=== PATIENT | female | born 1950 | race Caucasian/White ===

== ENCOUNTER 2016-10-17 09:13 | Day surgery (SDC) | payer MEDICARE ==
[~2016-10-17] VITALS: Ht 167.6 cm; Wt 54.0 kg
[~2016-10-17 09:13] MED LIST: ALEN35TA31 PO; ALPR0.5T8 PO; ASPI-973 PO; C COMPLEX PO; CHOL200025 PO; OXYQ113.2 VAGINAL; PRE625 PO; ZOLP5TAB6 PO
[2016-10-17] MEDS ORDERED: 0.9% Sodium Chloride 1,000 ML IV PRN (09:23)
[2016-10-17] MEDS ORDERED: fentaNYL-PF 50 mCg/mL 2 mL Inj IVPUSH PRN (09:25)
[2016-10-17] MEDS ORDERED: Sodium Chloride LOK Flush 10 mL Syringe IV PRN (09:25)
[2016-10-17 09:49] VITALS: BP 127/75; PULSE 77; RESP 15; O2SAT 98
[2016-10-17] MEDS ORDERED: 0.9% Sodium Chloride 1,000 ML IV ONE (10:15)
[2016-10-17 10:59] VITALS: BP 121/67; PULSE 62; RESP 16; O2SAT 96
[2016-10-17 11:09] VITALS: BP 114/65; PULSE 66; RESP 16; O2SAT 100
[2016-10-17 11:18] VITALS: BP 113/72; PULSE 67; RESP 16; O2SAT 99
--- NOTE | 2016-10-17 11:42 | ENDO ---
[address] [address] ENDOSCOPY PROCEDURE PATIENT: PANCHITO SERRANO : 1950 MR#: [id number] ADMIT: 10/17/2016 JOB ID: [id number] DATE OF SERVICE: 10/17/2016 PRIMARY PROVIDER: FARRUKH Parker. PROCEDURE: Colonoscopy. INDICATIONS: A 65-year-old female with a family history of colon cancer. EQUIPMENT: [employer]. SEDATION: 1. Versed 4 mg. 2. Fentanyl 100 mcg. COMPLICATIONS: None identified. BOWEL PREPARATION: Excellent. PROCEDURE INFORMATION: After the risks and benefits were explained, written and verbal informed consent was obtained. The patient was brought into the endoscopy suite and placed into the left lateral decubitus position. Sedation was achieved using the above-stated medications with the addition of oxygen via nasal cannula. Digital rectal examination was accomplished. No significant pathology appreciated. The scope was introduced into the rectum and advanced under direct visualization to the level of the cecum, as identified by the appendiceal orifice and ileocecal valve. The scope was slowly withdrawn to carefully examine the mucosa for any defects or lesions. Retroflexed views were avoided in the rectum. Multiple direct views were made through the dentate line for exclusion of pathology. The colon was decompressed. The scope removed from the patient who tolerated the procedure well. FINDINGS: Very technically challenging navigation. Redundant, twisty colon. No significant polyps, mass lesions, or inflammatory features identified throughout. ENDOSCOPIC DIAGNOSES: Visually unremarkable colonoscopy. RECOMMENDATIONS: Considering family history, repeat colonoscopy in five years.
== END 2016-10-17 23:59 | disposition home or self-care (01) ==
LOC: END 09:13
PROVIDERS: ATTEND Internal Medicine Gastroenterology
DX: Z12.11 Encounter for screening for malignant neoplasm of colon (principal); Z80.0 Family history of malignant neoplasm of digestive organs; K59.00 Constipation, unspecified; Z79.82 Long term (current) use of aspirin; Z79.890 Hormone replacement therapy; Z85.3 Personal history of malignant neoplasm of breast
CPT/HCPCS: 99153; G0105; G0500; J2250; J3010; J7030

== ENCOUNTER 2017-01-23 13:40 | Day surgery (SDC) | payer MEDICARE ==
[~2017-01-23] VITALS: Ht 167.6 cm; Wt 55.0 kg
[~2017-01-23 13:40] MED LIST changes: +0.9% Sodium Chloride 1,000 ML IV PRN; -OXYQ113.2 VAGINAL; -PRE625 PO; +Sodium Chloride LOK Flush 10 mL Syringe IV PRN; +fentaNYL-PF 50 mCg/mL 2 mL Inj IVPUSH PRN
[2017-01-23 14:12] VITALS: BP 118/74; PULSE 62; RESP 16; O2SAT 100
[2017-01-23 15:45] VITALS: BP 126/61; PULSE 67; RESP 14; O2SAT 97
[2017-01-23 15:55] VITALS: BP 113/59; PULSE 68; RESP 14; O2SAT 97
[2017-01-23 16:19] VITALS: BP 114/58; PULSE 63; RESP 12; O2SAT 99
--- NOTE | 2017-01-23 16:47 | ENDO ---
[address] [address] ENDOSCOPY PROCEDURE PATIENT: PANCHITO SERRANO : 1950 MR#: [id number] ADMIT: 01/23/2017 JOB ID: [id number] DATE: 01/23/2017 PROCEDURE: Esophagogastroduodenoscopy with biopsies. INDICATIONS: A 66-year-old female with fluctuating right upper quadrant pain, postprandial mostly in nature, going on some two years now. Labs are unremarkable. HIDA scan is normal. CT does not explain symptoms. Endoscopic interrogation is pursued. EQUIPMENT: GIF H 190. SEDATION: Versed 4 mg, 100 mcg fentanyl. COMPLICATIONS: None identified. PROCEDURE INFORMATION: After the risks and benefits were explained, written and verbal informed consent was obtained. The patient was brought into the endoscopy suite and placed into the left lateral decubitus position. Sedation was achieved using the above-stated medications with the addition of oxygen via nasal cannula. The scope was introduced into the mouth through the bite block and advanced under direct visualization to the level of the second portion of the duodenum. The scope was slowly withdrawn to carefully examine the mucosa for any defects or lesions. Retroflexed views were accomplished in the stomach, the stomach was decompressed, and the scope removed the patient, who tolerated the procedure well. FINDINGS: 1. Duodenum: No significant mucosal pathology appreciated from the bulb through to the second portion. 2. Stomach: No outlet obstruction. No mass lesions. There was, however, evidence of a moderate erosive gastropathy. Erosions were all through the antrum and prepyloric region. They even extended up into the more proximal stomach in linear fashion. One of these erosions was targeted for histopathologic analysis and for exclusion of H. pylori. Retroflexed views of the LES were otherwise unremarkable. 3. Esophagus: The squamocolumnar junction correlated with the top of the gastric folds. The GEJ was at 40 cm from the incisors. No acute erosive changes. No strictures. No mass lesions. ENDOSCOPIC DIAGNOSIS: 1. Erosive gastropathy. 2. Otherwise visually unremarkable esophagogastroduodenoscopy. RECOMMENDATIONS: 1. Await histopathology. 2. If Helicobacter is found, will need eradicated with standard triple therapy. 3. Depending on the findings at histology, the patient may wish to trial some enteric-coated peppermint capsules to see if this attenuates symptoms. 4. Follow up in my office to review response in the next 4-6 weeks.
--- NOTE | 2017-01-25 13:55 | PATH ---
SURGICAL PATHOLOGY Attending Physician:Mark Chinchilla CASE STATUS: Signed Out PATIENT NAME: PANCHITO SERRANO PID: [id number] : 1950 DATE COLLECTED:01/23/2017 00:00 SPECIMEN: Gastric, Biopsy CLINICAL HISTORY: ABD PAIN 1). GASTRIC BIOPSY (RULE OUT H.PYLORI) FINAL DIAGNOSIS: 1.GASTRIC BIOPSY: MILD CHRONIC GASTRITIS INVOLVING ANTRAL MUCOSA. Negative for evidence of Helicobacter on H&E stain. Negative for intestinal metaplasia. Negative for dysplasia and malignancy. ICD10 K29.70 GROSS DESCRIPTION: Received in formalin, labeled with the patient' s name and "gastric biopsy", is one fragment of chandra, soft tissue measuring 0.2 x 0.1 x 0.1 cm. The fragment is totally submitted in one cassette. ([id number]) MICRO DESCRIPTION: See diagnosis. ICD-9 CODES: CPT CODES: 1: 77967 Electronically Signed Out Blake Avendano MD [facility] [address], [place] [address] Technical component performed at [facility], [facility] [address], [address]
== END 2017-01-23 23:59 | disposition home or self-care (01) ==
LOC: END 13:40
PROVIDERS: ATTEND Internal Medicine Gastroenterology
DX: K29.50 Unspecified chronic gastritis without bleeding (principal); K31.9 Disease of stomach and duodenum, unspecified
CPT/HCPCS: 43239; G0500; J2250; J3010; J7030